=== PATIENT | female | born 1985 | race Asian ===

== ENCOUNTER 2017-03-23 04:30 | Inpatient (IN) | payer SELFPAY ==
[~2017-03-23] VITALS: Ht 168 cm; Wt 83.0 kg
[2017-03-23] MEDS ORDERED: LACTATED RINGERS 1,000 ML IV SCH (04:56)
[2017-03-23 05:00] VITALS: BP 156/98
[2017-03-23] MEDS ORDERED: IBUPROFEN 800 MG TAB PO PRN ×2 (05:00→08:30)
[2017-03-23] MEDS ORDERED: NALBUPHINE 10 MG/ML AMP IVP PRN (05:00)
[2017-03-23] MEDS ORDERED: BETAMETH ACET/BETAMETH NA PH 30 MG/5 ML VIAL IM SCH (05:00)
[2017-03-23] MEDS ORDERED: TERBUTALINE 1 MG/ML VIAL SUBQ SCH (05:00)
[2017-03-23] MEDS ORDERED: PROMETHAZINE 25 MG/ML VIAL IVP PRN (05:00)
[2017-03-23 05:25] LABS: BASOPHILS # (AUTO) 0.1 K/uL (0.00-0.22); BASOPHILS % (AUTO) 1.4 % (0.0-2.0); EOSINOPHILS # (AUTO) 0.2 K/uL (0-0.4); EOSINOPHILS % (AUTO) 1.8 % (0.0-4.0); HEMATOCRIT 45.3 % (36-48); HEMOGLOBIN 15.4 g/dL (12.0-16.0); LYMPHOCYTES % (AUTO) 23.6 % (20.5-51.1); MEAN CORPUSCULAR HEMOGLOBIN 32 pg (27-31); MEAN CORPUSCULAR HGB CONC 34 g/dL (33-37); MEAN CORPUSCULAR VOLUME 93 fL (80-94); MONOCYTES # (AUTO) 0.4 K/uL (0.8-1.0); NEUTROPHILS # (AUTO) 5.8 K/uL (1.8-7.7); NEUTROPHILS % (AUTO) 68.2 % (42.2-75.2); PLATELET COUNT (AUTO) 138 K/uL (140-450); RED BLOOD CELL COUNT(AUTO) 4.86 MIL/uL (4.20-5.40); WHITE BLOOD COUNT (AUTO) 8.5 K/uL (4.8-10.8)
[2017-03-23 05:32] LABS: BILIRUBIN,URINE NEGATIVE (NEGATIVE); BLOOD, URINE 2+ (NEGATIVE); COLOR,URINE YELLOW (YELLOW); LEUKOCYTE ESTERASE ,URINE NEGATIVE (NEGATIVE); NITRITE, URINE NEGATIVE (NEGATIVE); PH,URINE 6.5 (5.0-9.0); PROTEIN,URINE 2+ (NEGATIVE); UGLUCOSE NEGATIVE (NEGATIVE); UROBILINOGEN,URINE 0.2 EU/dL (0.2 - 1)
[2017-03-23] MEDS: MAG SULF 20 GM/H2O PREMIX DRIP 500 ML IV SCH (05:38)
[2017-03-23] MEDS ORDERED: MAG SULF 20 GM/H2O PREMIX DRIP 500 ML IV ONE ×2 (05:39→16:16)
[2017-03-23] MEDS ORDERED: BETAMETH ACET/BETAMETH NA PH 30 MG/5 ML VIAL IM ONE (05:39)
[2017-03-23 05:41] LABS: ALBUMIN 2.1 g/dL (3.4-5.0); ANION GAP 14.2 (8-16); CALCIUM 8.8 mg/dL (8.5-10.1); CARBON DIOXIDE 20.9 mmol/L (21-32); CREATININE 0.6 mg/dL (0.6-1.3); MAGNESIUM 1.7 mg/dL (1.8-2.4); POTASSIUM 4.1 mmol/L (3.5-5.1); TOTAL BILIRUBIN 0.2 mg/dL (0.0-1.0); TOTAL PROTEIN, SERUM 5.6 g/dL (6.4-8.2)
[2017-03-23 05:57] LABS: APPEARANCE,URINE SLIGHTLY HAZY (CLEAR)
[2017-03-23 05:58] LABS: BACTERIA,URINE 0-2 (RARE) /HPF (None Seen); RBC,URINE 3-10 (FEW) /HPF (0-5); SQUAMOUS EPITHELIAL CELL,UR 0-3 (FEW) /LPF (0-3 (FEW)); WBC,URINE 0-5 (RARE) /HPF (0-5)
[2017-03-23 06:01] LABS: INR 0.9 (0.8-1.2); PARTIAL THROMBOPLASTIN TIME 28.2 secs (22-35.6); PROTHROMBIN TIME 8.9 secs (10.8-13.4)
[2017-03-23] MEDS ORDERED: ceFAZolin 1,000 MG VIAL ONE (06:52)
[2017-03-23] MEDS ORDERED: CITRIC ACID/SODIUM CITRATE 30 ML UDC ONE (06:52)
[2017-03-23] MEDS ORDERED: MORPHINE PRES FREE 10 MG/10 ML AMP IV ONE (07:09)
[2017-03-23 07:14] LABS: HIV RAPID SCREEN NON-REACTIVE (NON REACTIV)
[2017-03-23] MEDS ORDERED: OXYTOCIN 10 UNITS/ML VIAL ONE ×2 (07:14→07:16)
[2017-03-23] MEDS ORDERED: ceFAZolin 1,000 MG VIAL IVP ONE (07:15)
[2017-03-23] MEDS ORDERED: TRIAMCINOLONE 10 MG/ML 5ML VIAL ONE (07:15)
[2017-03-23] MEDS ORDERED: ONDANSETRON 4 MG/2 ML VIAL ONE (07:16)
[2017-03-23] MEDS ORDERED: BUPIVACAINE-MPF 0.75% 10 ML VIAL INJ ONE (07:16)
[2017-03-23] MEDS ORDERED: LABE200T9 PO (07:23)
[2017-03-23] MEDS ORDERED: PREN-380 PO (07:23)
[2017-03-23] MEDS ORDERED: diphenhydrAMINE 50 MG/ML VIAL IVP PRN (07:35)
[2017-03-23] MEDS ORDERED: NALOXONE 0.4 MG/ML VIAL IVP PRN ×2 (07:35)
[2017-03-23] MEDS ORDERED: OXYTOCIN 20 UNITS/LR PREMIX 1,000 ML IV SCH ×2 (07:35→08:28)
--- NOTE | 2017-03-23 07:48 | NUR ---
PATIENT HAS BEEN SCREENED AND CATEGORIZED LOW RISK. PATIENT WILL BE SEEN WITHIN 7 DAYS OF ADMISSION. 03/30/[address]
[2017-03-23] MEDS ORDERED: OXYTOCIN 20 UNITS/LR PREMIX 1,000 ML IV ONE ×2 (07:59→20:19)
[2017-03-23] MEDS ORDERED: diphenhydrAMINE 50 MG/ML VIAL ONE (07:59)
[2017-03-23] MEDS ORDERED: TEMAZEPAM 15 MG CAP PO PRN (08:30)
[2017-03-23] MEDS ORDERED: HYDROcodone/APAP 5/325 MG 1 TAB TAB PO PRN (08:30)
[2017-03-23] MEDS ORDERED: MEASLES, MUMPS, AND RUBELLA 1 VIAL SQVAC PRN (08:30)
[2017-03-23] MEDS ORDERED: SIMETHICONE 80 MG TAB.CHEW PO PRN (08:30)
[2017-03-23] MEDS ORDERED: TRIMETHOBENZAMIDE 200 MG/2 ML SYR IM PRN (08:30)
[2017-03-23] MEDS ORDERED: METHYLERGONOVINE 0.2 MG/ML AMP IM PRN (08:30)
[2017-03-23] MEDS ORDERED: LABETALOL 200 MG TAB ONE ×3 (10:13→22:13)
[2017-03-23 12:20] LABS: RAPID PLASMA REAGIN NON-REACTIVE (Non Reactiv)
[2017-03-23] MEDS: LABETALOL 200 MG TAB PO SCH ×2 (22:00→22:10)
[2017-03-24] MEDS ORDERED: IBUPROFEN 800 MG TAB PO PRN (00:10)
[2017-03-24] MEDS: MAG SULF 20 GM/H2O PREMIX DRIP 500 ML IV SCH (03:06)
[2017-03-24] MEDS ORDERED: MAG SULF 20 GM/H2O PREMIX DRIP 500 ML IV ONE (03:10)
[2017-03-24 07:16] LABS: HEMATOCRIT 41.7 % (36-48); HEMOGLOBIN 14.2 g/dL (12.0-16.0); MEAN CORPUSCULAR HEMOGLOBIN 32 pg (27-31); MEAN CORPUSCULAR HGB CONC 34 g/dL (33-37); MEAN CORPUSCULAR VOLUME 93 fL (80-94); PLATELET COUNT (AUTO) 142 K/uL (140-450); RED BLOOD CELL COUNT(AUTO) 4.48 MIL/uL (4.20-5.40); RED CELL DISTRIBUTION WIDTH 12.1 % (11.6-13.7); WHITE BLOOD COUNT (AUTO) 17.8 K/uL (4.8-10.8)
[2017-03-24 07:49] LABS: APPEARANCE,URINE SLIGHTLY HAZY (CLEAR); BILIRUBIN,URINE NEGATIVE (NEGATIVE); BLOOD, URINE 1+ (NEGATIVE); COLOR,URINE YELLOW (YELLOW); LEUKOCYTE ESTERASE ,URINE NEGATIVE (NEGATIVE); NITRITE, URINE NEGATIVE (NEGATIVE); PROTEIN,URINE 2+ (NEGATIVE); UGLUCOSE NEGATIVE (NEGATIVE); UROBILINOGEN,URINE 0.2 EU/dL (0.2 - 1)
[2017-03-24 08:06] LABS: BAND % (MANUAL) 0 % (0-8); BASOPHILS % (MANUAL) 0 % (0-2); EOSINOPHILS % (MANUAL) 1 % (0-4); LYMPHOCYTES % (MANUAL) 10 % (20-46); MONOCYTES % (MANUAL) 4 % (5-12); NEUTROPHILS % (MANUAL) 85 (43-65); PLATELET ESTIMATE ADEQUATE
[2017-03-24 08:24] LABS: MUCUS,URINE None Seen /LPF (None Seen); RBC,URINE 3-10 (FEW) /HPF (0-5); SQUAMOUS EPITHELIAL CELL,UR 0-3 (FEW) /LPF (0-3 (FEW)); WBC,URINE 0-5 (RARE) /HPF (0-5)
[2017-03-24 08:25] LABS: BACTERIA,URINE None Seen /HPF (None Seen)
[2017-03-24] MEDS ORDERED: LABETALOL 200 MG TAB ONE (09:05)
[2017-03-24] MEDS: LABETALOL 200 MG TAB PO SCH (21:21)
[2017-03-24] MEDS: DOCUSATE SOD/SENNA 50/8.6 MG 1 TAB PO SCH (21:23)
[2017-03-25] MEDS: LABETALOL 200 MG TAB PO SCH ×2 (08:23→21:28)
[2017-03-25 09:07] LABS: HEPATITIS B SURFACE ANTIGEN Negative (Negative)
[2017-03-25 13:12] LABS: RUBELLA AB IGG 2.61 index (Immune >0.99)
[2017-03-25] MEDS: DOCUSATE SOD/SENNA 50/8.6 MG 1 TAB PO SCH (21:27)
[2017-03-26] MEDS: LABETALOL 200 MG TAB PO SCH (08:43)
== END 2017-03-26 11:30 | disposition home or self-care (01) | DRG 765 ==
LOC: MFCC 04:30 → MLD 08:12 → MFCC 03-24 12:25
PROVIDERS: ADMIT Obstetrics & Gynecology; ATTEND Obstetrics & Gynecology
PROC: 10D00Z1 Extraction of Products of Conception, Low, Open Approach (ICD-10-PCS; principal; 2017-03-23 06:45)
DX: O42.913 Preterm premature rupture of membranes, unspecified as to length of time between rupture and onset of labor, third trimester (principal); O60.14X0 Preterm labor third trimester with preterm delivery third trimester, not applicable or unspecified; O14.14 Severe pre-eclampsia complicating childbirth; Z37.0 Single live birth; Z3A.36 36 weeks gestation of pregnancy
CPT/HCPCS: 36415; 51702; 80053; 81001; 83735; 85025; 85384; 85610; 85730; 86592; 86762; 86886; 86900; 86901; 87340; J0690; J0702; J1200; J2270; J2405; J2590; J3301; J3475; J3490; J7060; J7120